=== PATIENT | female | born 1990 | race Caucasian/White ===

== ENCOUNTER 2021-08-26 07:54 | Inpatient (IN) ==
[2021-08-26] MEDS ORDERED: OXYTOCIN 30 UNITS/500 ML BAG IV PRN (08:36)
[2021-08-26] MEDS ORDERED: miSOPROStoL 50 MCG TAB PO ONE ×3 (08:36→21:38)
[2021-08-26 09:18] LABS: Hematocrit (blood only) 33.5 % (37-47); Hemoglobin 10.6 g/dL (12.0-16.0); Mean Corpuscular Hemoglobin 21.5 pg (25-34); Mean Corpuscular Hgb Conc 31.6 g/dL (32-36); Mean Corpuscular Volume 67.8 fL (80-100); Platelet Count 211 K/uL (130-400); RDW Coefficient of Variation 17.4 % (11.5-14.5); RDW Standard Deviation 42.1 fL (36.4-46.3); Red Blood Count 4.94 M/uL (4.2-5.4); White Blood Count 7.65 K/uL (4.8-10.8)
[2021-08-27] MEDS ORDERED: miSOPROStoL 50 MCG TAB PO ONE (01:56)
[2021-08-27] MEDS ORDERED: BUTORPHANOL TARTRATE 1 MG/ML VIAL IV PRN (06:09)
[2021-08-27] MEDS ORDERED: BUTORPHANOL TARTRATE 1 MG/ML VIAL ONE (06:16)
[2021-08-27] MEDS: LACTATED RINGER'S 1,000 ML IV PRN ×2 (07:52→08:52)
[2021-08-27] MEDS ORDERED: ePHEDrine sulfate 50 MG/ML AMP ONE (07:57)
[2021-08-27] MEDS ORDERED: fentaNYL citrate 100 MCG/2 ML VIAL ONE (07:58)
[2021-08-27] MEDS ORDERED: BUPIVACAINE 0.25% 30 ML VIAL ONE (07:58)
[2021-08-27] MEDS ORDERED: SODIUM CHLORIDE 0.9% INJ 10 ML VIAL ONE (07:58)
[2021-08-27] MEDS ORDERED: LIDOCAINE 2%/EPINEPHRINE 1:200,000 20 ML SDV ONE (07:58)
[2021-08-27] MEDS ORDERED: fentaNYL 2MCG/ML ROPIVACAINE 1.25MG/ML 100 ML BAG EPI ONE (07:59)
[2021-08-27] MEDS ORDERED: NALBUPHINE HCL INJ 10 MG/ML AMP IV PRN (08:16)
[2021-08-27] MEDS ORDERED: NALOXONE HCL 0.4 MG/1 ML VIAL/CARP IV PRN (08:16)
[2021-08-27] MEDS ORDERED: NALOXONE HCL 1 MG in SODIUM CHLORIDE 0.9% 1000ML 1,000 ML IV PRN (08:16)
[2021-08-27] MEDS ORDERED: diphenhydrAMINE 50 MG/ML VIAL IV PRN (08:16)
[2021-08-27] MEDS ORDERED: ONDANSETRON INJ 2 MG/ML 2 ML VIAL IV PRN ×2 (08:16→16:59)
[2021-08-27] MEDS ORDERED: ePHEDrine sulfate 50 MG/ML AMP IV PRN (08:16)
[2021-08-27] MEDS ORDERED: fentaNYL 2MCG/ML ROPIVACAINE 1.25MG/ML 100 ML BAG EPI PRN (08:16)
--- NOTE | 2021-08-27 08:52 | Anesthesiology Consultation ---
Date of Service August 27, 2021 Assessment & Plan ASA ASA2 Proposed Anesthesia Anesthesia Type: Labor Epidural Risk / Benefits Reviewed With: PT / POA / Parent / Guardian, Accepts Plan and Informed Consent Obtained History Height/Weight Height: 5 ft 9 in Weight: 73.936 kg Allergies Allergy/AdvReac Type Severity Reaction Status Date / Time No Known Allergies Allergy Verified 08/26/21 08:49 Medications Home Medications Medication Instructions Recorded Confirmed Last Taken prenat.vits,elham,luh-rxbc-mpujx 1 tab PO QAM 01/27/21 08/26/21 08/25/21 08:00 quetiapine 25 mg tablet (Seroquel) 6 mg PO HS 02/28/21 08/26/21 08/24/21 Active Medications Generic Name Dose Route Start Last Admin Trade Name Freq PRN Reason Stop Dose Admin Butorphanol Tartrate 1 mg 08/27/21 06:09 08/27/21 07:39 Butorphanol Tartrate 1 Mg/Ml Vial IV 09/26/21 06:08 1 mg Q1H PRN Administration Pain Lactated Ringer's 1,000 mls @ 125 mls/hr 08/26/21 08:36 08/27/21 07:52 Lr IV 08/28/21 08:35 999 mls/hr .Q8H PRN Administration L&D Protocol Protocol Past Medical History Medical History (Updated 08/26/21 @ 11:53 by Antonietta Rosado RN) ADHD (attention deficit hyperactivity disorder) Anxiety and depression POTS (postural orthostatic tachycardia syndrome) Exercise / Class Metabolic Activity II 4-5 Yardwork/Stairs/Walk up hill Past Family History Family History Aunt Breast cancer Grandmother (Maternal) Breast cancer Denies family history of Ovarian cancer Prostate cancer Colorectal cancer Past Surgical History Surgical History History of tooth extraction Past Anesthesia History No Hx of Anesthesia Complications and No Family Hx of Anesthesia Complications History of PONV No Hx of PONV and No Hx of Motion Sickness Social History Smoking Status: Never smoker Do You Dip or Chew Tobacco: No Hx Alcohol Use: No Hx Substance Use: No Review of Systems denies fever/cough/ colds/ chest pain/ SOB/ KENNY denies KENNY Physical Exam Vital Signs Last Vital Signs Temp 36.8 C 08/27/21 07:10 Pulse 52 L 08/27/21 08:50 Resp 18 08/27/21 07:10 BP 108/59 L 08/27/21 08:50 Pulse Ox 98 08/27/21 08:50 ENMT Mouth: no TMJ abnormality and no dentition abnormality Thyromental Distance: > or= 3.5 Finger Breadths Mallampati Class: II Neck neck extension not limited Respiratory normal respiratory effort; no respiratory distress Auscultation: lungs clear to auscultation bilaterally Cardiovascular Rate/Rhythm: regular rate and regular rhythm Neurologic moves all extremities Psychiatric Orientation: alert and oriented x 3 Testing Laboratory Results 08/26/21 08:49
[2021-08-27] MEDS ORDERED: OXYTOCIN 30 UNITS/500 ML BAG IV PRN ×2 (09:18→14:21)
[2021-08-27] MEDS ORDERED: bisacodyL 10 MG SUPP PR PRN (14:21)
[2021-08-27] MEDS ORDERED: DIPHTHERIA/TETANUS/PERTUSSIS 0.5 ML SYR/VIAL IM ONE (14:21)
[2021-08-27] MEDS ORDERED: miSOPROStoL 200 MCG TAB PR ONE (14:21)
[2021-08-27] MEDS ORDERED: METHYLERGONOVINE MALEATE 0.2 MG/ML AMP IM ONE (14:21)
[2021-08-27] MEDS ORDERED: HYDROCORTISONE ACETATE 25 MG SUPP PR PRN (14:21)
[2021-08-27] MEDS ORDERED: ACETAMINOPHEN W/CODEINE #3 1 TAB PO PRN (14:21)
[2021-08-27] MEDS ORDERED: BENZOCAINE 20% AER SPR 82.5 GM CAN EXT PRN (14:21)
[2021-08-27] MEDS ORDERED: oxyCODONE/ACETAMINOPHEN 5mg/325mg TAB PO PRN (14:21)
--- NOTE | 2021-08-27 15:56 | Anesthesiology Progress Note ---
Date of Service August 27, 2021 Anesthesia Post Procedure Vital Signs Vital Signs: Temp Pulse Pulse Resp BP Pulse Ox 08/27/21 15:45 18 08/27/21 15:43 56 L 128/66 08/27/21 15:29 61 138/64 08/27/21 15:15 36.5 C 16 08/27/21 15:13 69 135/70 08/27/21 15:11 66 123/57 L 08/27/21 15:09 65 141/65 H 08/27/21 15:05 63 128/67 08/27/21 15:03 62 140/67 08/27/21 15:01 60 132/69 08/27/21 15:00 16 08/27/21 14:59 67 131/61 08/27/21 14:57 62 129/61 08/27/21 14:55 65 132/58 L 08/27/21 14:53 64 124/60 08/27/21 14:51 67 133/60 08/27/21 14:47 61 121/59 L 08/27/21 14:45 62 18 136/57 L 08/27/21 14:43 65 126/59 L 08/27/21 14:41 60 140/63 08/27/21 14:39 70 130/64 08/27/21 14:35 69 125/59 L 08/27/21 14:33 70 136/63 08/27/21 14:31 72 153/63 H 08/27/21 14:30 16 08/27/21 14:29 89 135/91 08/27/21 14:26 78 143/62 H 08/27/21 14:23 81 119/66 08/27/21 14:21 68 126/74 08/27/21 14:20 36.9 C 18 08/27/21 14:19 63 120/65 08/27/21 14:17 68 119/73 08/27/21 14:14 67 124/69 08/27/21 14:12 75 125/71 08/27/21 14:11 77 126/70 08/27/21 14:09 91 H 122/76 08/27/21 14:05 86 98 08/27/21 14:00 93 H 98 08/27/21 13:55 94 H 99 08/27/21 13:50 75 97 08/27/21 13:45 97 H 99 08/27/21 13:40 108 H 99 08/27/21 13:39 77 118/71 08/27/21 13:35 69 96 08/27/21 13:30 81 99 08/27/21 13:25 93 H 92 08/27/21 13:20 72 98 08/27/21 13:15 62 98 08/27/21 13:10 60 98 08/27/21 13:09 55 L 103/59 L 08/27/21 13:05 54 L 97 08/27/21 13:00 54 L 98 08/27/21 12:55 67 96 08/27/21 12:50 56 L 97 08/27/21 12:45 55 L 98 08/27/21 12:40 55 L 98 08/27/21 12:39 53 L 118/68 08/27/21 12:35 61 99 08/27/21 12:30 52 L 16 97 08/27/21 12:25 52 L 96 08/27/21 12:20 55 L 97 08/27/21 12:15 55 L 96 08/27/21 12:10 58 L 98 08/27/21 12:09 53 L 109/67 08/27/21 12:05 66 99 08/27/21 12:00 61 18 98 08/27/21 11:59 36.9 C 08/27/21 11:55 59 L 99 08/27/21 11:54 55 L 112/67 08/27/21 11:50 57 L 97 08/27/21 11:45 53 L 98 08/27/21 11:40 55 L 134/60 97 08/27/21 11:35 67 98 08/27/21 11:30 66 18 97 08/27/21 11:25 64 98 08/27/21 11:24 64 120/69 08/27/21 11:20 61 97 08/27/21 11:15 60 95 08/27/21 11:10 56 L 127/75 97 08/27/21 11:05 63 96 08/27/21 11:00 56 L 18 97 08/27/21 10:55 59 L 97 08/27/21 10:54 60 108/68 08/27/21 10:50 57 L 96 08/27/21 10:45 59 L 18 96 08/27/21 10:40 61 97 08/27/21 10:39 55 L 113/68 08/27/21 10:35 59 L 96 08/27/21 10:30 59 L 16 98 08/27/21 10:25 57 L 120/81 98 08/27/21 10:20 69 99 08/27/21 10:16 16 08/27/21 10:15 54 L 97 08/27/21 10:10 59 L 98 08/27/21 10:09 56 L 109/67 08/27/21 10:05 53 L 18 98 08/27/21 10:01 16 08/27/21 10:00 51 L 98 08/27/21 09:55 55 L 97 08/27/21 09:54 47 L 113/62 08/27/21 09:50 53 L 16 98 08/27/21 09:45 59 L 99 08/27/21 09:41 16 08/27/21 09:40 64 98 08/27/21 09:38 54 L 110/61 08/27/21 09:35 64 98 08/27/21 09:34 51 L 107/61 08/27/21 09:30 50 L 16 98 08/27/21 09:28 58 L 107/62 08/27/21 09:25 55 L 116/61 97 08/27/21 09:20 51 L 16 96 08/27/21 09:18 57 L 114/62 08/27/21 09:17 16 08/27/21 09:15 57 L 99 08/27/21 09:14 50 L 113/57 L 08/27/21 09:10 56 L 97 08/27/21 09:09 51 L 115/55 L 08/27/21 09:05 57 L 16 98 08/27/21 09:04 50 L 112/55 L 08/27/21 09:00 58 L 97 08/27/21 08:59 16 08/27/21 08:56 54 L 16 113/56 L 08/27/21 08:55 54 L 96 08/27/21 08:54 54 L 112/56 L 08/27/21 08:53 18 08/27/21 08:52 51 L 106/57 L 08/27/21 08:50 52 L 108/59 L 98 08/27/21 08:49 18 08/27/21 08:48 56 L 113/61 08/27/21 08:46 50 L 114/63 08/27/21 08:45 53 L 18 96 08/27/21 08:44 53 L 112/59 L 08/27/21 08:43 58 L 117/55 L 08/27/21 08:41 54 L 125/90 08/27/21 08:40 59 L 98 08/27/21 08:38 65 123/80 08/27/21 08:37 59 L 135/75 08/27/21 08:35 53 L 97 08/27/21 08:34 76 112/60 08/27/21 08:32 57 L 123/86 08/27/21 08:30 67 100 08/27/21 08:25 67 98 08/27/21 08:22 55 L 90 08/27/21 08:20 67 94 08/27/21 08:15 54 L 95 08/27/21 08:10 57 L 95 08/27/21 08:05 66 99 08/27/21 08:03 56 L 90 08/27/21 08:00 58 L 95 08/27/21 07:55 58 L 98 08/27/21 07:50 75 97 08/27/21 07:43 68 98 08/27/21 07:38 72 99 08/27/21 07:33 46 L 95 08/27/21 07:28 48 L 97 08/27/21 07:23 45 L 95 08/27/21 07:18 53 L 125/73 97 08/27/21 07:13 47 L 96 08/27/21 07:10 36.8 C 18 08/27/21 07:08 65 97 08/27/21 07:03 51 L 97 08/27/21 06:58 50 L 97 08/27/21 06:53 54 L 97 08/27/21 06:48 49 L 95 08/27/21 06:43 53 L 95 08/27/21 06:38 62 93 08/27/21 06:33 58 L 97 08/27/21 06:28 62 94 08/27/21 06:19 12 96 08/27/21 03:30 36.7 C 47 L 14 08/27/21 03:26 36.7 C 47 L 14 110/56 L 07/05/22 23:00 36.9 C 52 L 52 L 15 08/26/21 22:59 52 L 111/57 L 08/26/21 19:11 36.9 C 52 L 16 08/26/21 19:02 52 L 120/67 08/26/21 18:58 36.5 C 52 L 16 120/67 Pain Intensity Lower Back: Pain Intensity: 0 Transfer of Care Handoff Completed per policy Notes Mental Status: alert / awake / arousable and participated in evaluation Patient Amnestic to Procedure: Yes Nausea / Vomiting: adequately controlled Pain: adequately controlled Airway Patency, RR, SpO2: stable & adequate BP & HR: stable & adequate Hydration State: stable & adequate Anesthetic Complications: no major complications apparent and Pt Satisfied with anesthetic care
[2021-08-27] MEDS ORDERED: ONDANSETRON INJ 2 MG/ML 2 ML VIAL ONE (17:04)
--- NOTE | 2021-08-27 19:16 | Delivery Summary ---
DELIVERY NOTE: DATE OF DELIVERY: 08/27/2021 The patient is a 1, para 1, she had IVF . Due to IVF status she was induced at 39+ w eeks' gestation, was brought in. Head was nice and low. Cervix was closed. We gave her about four doses of Cytotec throughout the night and the next morning when I came in, the cervix was paper thin. She was about 1.5 cm. She received 2 doses of IV Stadol and then epidural. After the epidural was started, we augmented the contractions with IV Pitocin. The first time I checked her after about 4 hours of IV Pitocin augmentation, she was fully dilated, the head was like a +1. We then had her pus h several times. She pushed out a live male via direct occiput anterior position over an inta ct perineum. There was a nuchal cord x1, which was reduced over the head. Then, the infant was suct ioned through the mouth and the nose. Shoulders were delivered without difficulty. Cord was allowed to pulse for 1 minute and clamped and cut. Cord blood was taken. With IV Pitocin running, the plac enta was removed intact. We also gave her IM Methergine. Inspection of the perineum revealed a seco nd-degree laceration of the perineum. This was repaired anatomically, vaginal mucosa was approximated with a running 2-0 Vicryl out and to beyond the hymenal ring. There was a very small tear in the re ctal sphincter capsule and this was repaired with two interrupted sutures of Vicryl. We then did a d eep suture to approximate the bulbocavernosus muscle. A separate suture to approximate the perineal body and then another suture to approximate the suture between the perineal body suture and the bulbo cavernosus muscle. This approximated the deep sutures well. Then a running subcuticular suture to a pproximate the perineal skin edges. Following this, vaginal exam including rectovaginal examination revealed no hematoma formation or sponges in the vagina, 800 mcg of Cytotec was placed rectally. ESTIMATED BLOOD LOSS: 200 mL. The patient tolerated the procedure well and left the OR in good condition. Apgars were deferred to the nurses. Job ID: [id number]
[2021-08-27] MEDS: DOCUSATE SODIUM 100 MG CAP PO SCH (20:36)
[2021-08-27] MEDS: IBUPROFEN 600 MG TAB PO PRN (20:36)
[2021-08-27] MEDS ORDERED: QUEtiapine FUMARATE 25 MG TABLET PO SCH (22:30)
[2021-08-27] MEDS: QUEtiapine FUMARATE 25 MG TABLET PO SCH (22:36)
[2021-08-28] MEDS: IBUPROFEN 600 MG TAB PO PRN ×4 (03:33→16:57)
[2021-08-28 06:10] LABS: Hematocrit (blood only) 33.2 % (34.1-44.9); Hemoglobin 10.3 g/dl (12.0-16.0); Mean Corpuscular Hemoglobin 21.1 pg (25.0-34.0); Mean Corpuscular Volume 68.2 fL (80.0-100.0); RDW Coefficient of Variation 18.4 % (11.5-14.5); RDW Standard Deviation 42.3 fL (36.4-46.3); Red Blood Count 4.87 M/uL (3.93-5.22); White Blood Count 12.14 K/ul (4.8-10.8)
[2021-08-28] MEDS: ACETAMINOPHEN 325 MG TAB PO PRN ×2 (06:12→20:18)
[2021-08-28 07:01] LABS: Platelet Count 204 K/uL (130-400)
--- NOTE | 2021-08-28 08:44 | Obstetrical Progress Note ---
Date of Service August 28, 2021 Assessment & Plan Admission and Anticipated Discharge Date Admission Date: August 26, 2021 Subjective abdomen soft and non tender no calf tenderness ambulating well vaginal bleeding scant hgb 10.3 Results & Data ([facility]) Vital Signs (Past 12 Hours) Vital Signs Temp Pulse Pulse Resp BP BP Pulse Ox 08/28/21 07:30 36.4 C L 58 L 18 104/70 97 08/28/21 03:36 36.8 C 65 18 96/60 L 08/28/21 00:00 36.7 C 58 L 18 105/65
[2021-08-28] MEDS: DOCUSATE SODIUM 100 MG CAP PO SCH ×2 (09:10→20:18)
[2021-08-28] MEDS: PRENATAL VITAMIN 1 TAB PO SCH (09:11)
[2021-08-28] MEDS ORDERED: bisacodyL 5 MG TABEC PO SCH (20:00)
[2021-08-28] MEDS: QUEtiapine FUMARATE 25 MG TABLET PO SCH (22:01)
[2021-08-29] MEDS: IBUPROFEN 600 MG TAB PO PRN ×2 (06:11→10:33)
[2021-08-29 07:36] LABS: Hematocrit (blood only) 27.8 % (34.1-44.9); Hemoglobin 8.5 g/dl (12.0-16.0)
[2021-08-29] MEDS: PRENATAL VITAMIN 1 TAB PO SCH (08:06)
[2021-08-29] MEDS: DOCUSATE SODIUM 100 MG CAP PO SCH (08:06)
--- NOTE | 2021-08-29 08:25 | Obstetrical Progress Note ---
Date of Service August 29, 2021 Assessment & Plan Admission and Anticipated Discharge Date Admission Date: August 26, 2021 Subjective abdomen soft and non tender no calf tenderness ambulating well vaginal bleeding scant hgb 8.5 Results & Data ([facility]) Vital Signs (Past 12 Hours) Vital Signs Temp Pulse Resp BP Pulse Ox 08/28/21 22:55 36.7 C 57 L 16 101/61 97
== END 2021-08-29 11:23 | disposition home or self-care (01) | DRG 768 ==
LOC: 4S1 07:54 → 4E2 08-27 17:32

== ENCOUNTER 2023-12-01 09:27 | Inpatient (IN) ==
--- NOTE | 2023-12-01 09:53 | Emergency Department Note ---
Impression & Plan Severe malnutrition, Eating disorder ED Provider Note CHIEF COMPLAINT: NG tube placement HISTORY OF PRESENTING ILLNESS: This 33-year-old female patient presents to the emergency department for evaluation of a possible NG tube placement. The patient states that she saw her doctor yesterday at [facility] and her orthostatic vital signs were positive and there was concern for malnutrition per patient. The patient states that she was advised to come to the hospital to get an NG tube placed. However, the patient states that she could not come in yesterday for "medical stabilization" and presented today. The patient states that she talked to her financial sales consultant today and they recommended her to come to the ER. The patient states that her PCP feels comfortable managing her NG tube feedings. The patient states that she had one before and knows how to manage it at home. The patient states that she had outpatient blood work done yesterday. The patient states that it is very hard for her to eat due to her eating disorder. 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 She states that she is just not able to get enough nutrition orally. She states that she will frequently get dizzy, lightheadedness, and sometimes "black out" when she stands up or walks around. She denies any chest pain, but will get heart palpitations and heart racing with changes in position. Sometimes feels SOB with position changes as well because of being so malnourished. I reviewed the patient's PCP visit from 11/29/2023 that confirmed her history of anorexia nervosa, binge eating/purging type. Per the PCPs note, the patient is consistently consuming less than 1000 elham a day and has high levels of food guilt. She also has constant thoughts of abusing laxatives. The patient has lost 1.4 kg from the time of her last appointment per the note. Per the notes she has also been having dizziness, heart palpitations, fatigue, positional orthostasis, and tachycardia mixed with bradycardia. The patient's PCP did advise her to go to the ER for medical hospitalization and possible repeat NG/NJ tube placement. REVIEW OF SYSTEMS: See HPI for pertinent positives and pertinent negatives. ALLERGIES: Sesame oil MEDICATIONS: See below PAST MEDICAL HISTORY: See below PHYSICAL EXAM: VITALS: Vitals are noted on the nurse's note and reviewed by myself. GENERAL: The patient appears thin and slightly malnourished. However, she is non toxic, no acute distress, non-diaphoretic. SKIN: Capillary refill <2 sec. EYES: PERRLA. EOMI. Conjunctivae without injection, sclerae without icterus. NOSE: Patent without discharge. MOUTH: Mucous membranes moist. Uvula midline. Airway patent. NECK: Supple without nuchal rigidity. HEART: Regular rate and rhythm without murmurs gallops or rubs. LUNGS: Clear to auscultation bilaterally without wheezes, rales or rhonchi. No retractions or accessory muscle use. ABDOMEN: Positive bowel sounds x 4. Normal tympanic percussion. Soft, nontender. No masses or organomegaly. Zuluaga sign negative. No guarding or rebound tenderness. No focal RLQ or LLQ tenderness. MUSCULOSKELETAL: No gross musculoskeletal defects. NEURO: Patient was alert and oriented. No focal neurological deficits. DIFFERENTIAL DIAGNOSIS: Differential diagnosis includes bowel nourishment, dehydration, electrolyte abnormality, cardiac abnormality, pulmonary etiology, eating disorder, or others. ED COURSE AND MEDICAL DECISION MAKING: MEDICATIONS GIVEN: There is currently a severe shortage of IV fluids. The patient's condition was assessed and did not meet hospital criteria for IV fluid administration at this time. Therefore, IV fluids were not given. MONITOR: Continuous cardiac sonographer: Order was placed for continuous cardiac sonographer. Patient was placed on the cardiac sonographer and continuous pulse ox. Patient was noted to be in sinus bradycardia at an initial rate of 50 bpm per my interpretation. EKG: EKG was interpreted by myself as sinus bradycardia at 47 bpm with no acute ST or T wave changes and no significant change from her previous EKGs. INTERPRETATION OF LABS: I interpreted the labs with full lab results as below in the lab section of this note. Pertinent lab results discussed in the MDM section below. EXTERNAL RECORDS REVIEWED: I reviewed the patient's PCP office visit note from 11/29/2023 as above. CONSULTATIONS: On-call hospitalist MDM SUMMARY: I examined the patient. The patient was referred to the ER for admission due to her symptomatic malnutrition secondary to her anorexia nervosa. An IV lock was placed and labs were drawn. There is currently a severe shortage of IV fluids. The patient's condition was assessed and did not meet hospital criteria for IV fluid administration at this time. Therefore, IV fluids were not given. White blood cell count low at 3.37. Hemoglobin normal at 13.3. Platelet count normal at 252. Coags were normal. Prealbumin low at 18.1, but CMP was normal. Magnesium and phosphorus were normal. High-sensitivity troponin normal. TSH normal. Lipase normal. Vitamin B12 normal at 688. Vitamin D normal at 30.8. Serum hCG negative. Urinalysis was normal. The patient's workup in the ER was reassuring, but the patient has failed oral nutrition as an outpatient per her PCP and financial sales consultant. I spoke with the on-call hospitalist who agreed to admit the patient for further evaluation and treatment. Please refer to their dictation for further details. The patient's care was transferred in stable condition. DIAGNOSIS: Severe malnutrition Eating disorder Past Med/Surg History Problem List (Updated 12/01/23 @ 18:41 by Jen Adhikari PA-C) Severe malnutrition (Acute) Difficulty urinating Urinary retention Eating disorder (Acute) POTS (postural orthostatic tachycardia syndrome) Postural lightheadedness (Acute) Medical History ADHD (attention deficit hyperactivity disorder) Anxiety and depression Eating disorder affecting , antepartum Encounter for anatomic survey POTS (postural orthostatic tachycardia syndrome) resulting from in vitro fertilization, antepartum Supervision of normal intrauterine in primigravida Surgical History History of tooth extraction Family History Aunt Breast cancer Grandmother (Maternal) Breast cancer Denies family history of Ovarian cancer Prostate cancer Colorectal cancer Social History Smoking Status: Never smoker Second Hand Exposure: No; Do You Dip or Chew Tobacco: No; Hx Alcohol Use: No Hx Substance Use: No Preferred Language: Bangladeshi Communication Ability: Effective Palliative Care Nurse Practitioner Required: No Beliefs That Will Affect Care: None marital status: Current Living Situation: Family Current Living Situation Comment: Patient lives with son, current occupational status: employed current occupation: PHD student at [employer] Feels Safe at Home: Yes Safety Concerns: Feels Safe At This Time Assistive Devices: Contacts Allergies Allergies Allergy/AdvReac Type Severity Reaction Status Date / Time sesame oil Allergy Severe Swelling Verified 08/18/23 07:23 of Lip/Tongue/Throat Home Meds Home Medications Medication Instructions Recorded Confirmed dextroamphetamine-amphetamine 5 mg 5 mg PO QAM PRN Other 11/03/22 12/01/23 tablet lorazepam 0.5 mg tablet 0.5 mg PO BID 11/03/22 12/01/23 multivitamin 1 tab PO QAM 11/03/22 12/01/23 sertraline 50 mg tablet 100 mg PO UD 11/03/22 12/01/23 trazodone 50 mg tablet 25 - 50 mg PO HS 12/01/23 12/01/23 Previous Rx's Medication Instructions Recorded etonogestrel 0.12 mg-ethinyl 1 vag ring vaginal .COMPLEX #3 ea 08/18/23 estradiol 0.015 mg/24 hr vaginal ring (NuvaRing) Results & Data (ED) Vital Signs Vital Signs - 24 hr 12/01/23 09:33 12/01/23 09:42 12/01/23 09:51 Temperature 36.3 C L Temperature Source Temporal Artery Scan Pulse Rate - Sitting 62 Pulse Rate - Standing 58 L Pulse Rate 68 53 L Respiratory Rate 16 Respiratory Effort / Characteristics Non-Labored Spontaneous Respiratory Depth Normal Blood Pressure - Sitting 117/61 Blood Pressure- Standing 113/69 Blood Pressure 104/73 Blood Pressure Mean 83 Pulse Oximetry 94 Oxygen Delivery Method Room Air Sepsis Recent Fever Within 48 Hours No Sepsis New/Unexplained Change in Mental Status No Sepsis Action Taken by Nursing No Action Required Laboratory Data 12/01/23 10:20 12/01/23 17:53 Lab Results 12/01/23 12/01/23 Range/Units 10:20 10:25 WBC 3.37 L (4.8-10.8) K/ul RBC 5.30 (4.20-5.40) M/uL Hgb 13.3 (12.0-16.0) g/dl Hct 42.0 (37.0-47.0) % MCV 79.2 L (80.0-100.0) fL MCH 25.1 (25.0-34.0) pg MCHC 31.7 L (32.0-36.0) g/dL RDW Std Deviation 43.0 (36.4-46.3) fL RDW Coeff of Lizeth 14.9 H (11.5-14.5) % Plt Count 252 (130-400) K/uL MPV 10.8 (9.4-12.4) fL Immature Gran % (Auto) 0.3 % Neut % (Auto) 44.1 % Lymph % (Auto) 40.1 % [place] % (Auto) 10.4 % Eos % (Auto) 3.9 % Baso % (Auto) 1.2 % Neut # (Auto) 1.49 (1.40-6.50) K/uL Lymph # (Auto) 1.35 (1.20-3.40) K/uL [place] # (Auto) 0.35 (0.11-0.59) K/uL Eos # (Auto) 0.13 (0.00-0.50) K/uL Baso # (Auto) 0.04 (0.00-0.20) K/uL Immature Gran # (Auto) 0.01 (0.01-0.20) K/uL PT 10.9 (9.0-12.0) Seconds INR 1.0 (0.9-1.1) APTT 26 (21-31) Seconds PTT Ratio 1.0 Sodium 140 (136-145) mmol/L Potassium 3.8 (3.5-5.1) mmol/L Chloride 107 (98-107) mmol/L Carbon Dioxide 28 (21-32) mmol/L Anion Gap 5 (3-11) BUN 12 (6-23) mg/dl Creatinine 0.71 (0.6-1.2) mg/dl Est Cr Clr Drug Dosing 107.5 ml/min eGFR 116.51 BUN/Creatinine Ratio 16.9 (10-20) Glucose 87 (70-99(Fasting)) mg/dl Calcium 9.7 (8.6-10.3) mg/dl Phosphorus 2.9 (2.5-4.9) mg/dl Magnesium 2.2 (1.7-2.4) mg/dl Total Bilirubin 0.6 (0.2-1.0) mg/dl AST 14 (13-39) U/L ALT 9 (7-52) U/L Alkaline Phosphatase 62 (34-104) U/L Troponin I High Sens < 2.3 (0-14) pg/ml Total Protein 7.6 (6.0-8.3) gm/dl Albumin 4.8 (3.4-5.0) gm/dl Globulin 2.8 (2.5-4.0) gm/dl Albumin/Globulin Ratio 1.7 (0.9-2) Prealbumin 18.1 L (20-40) mg/dl Lipase 35 (11-82) U/L Vitamin B12 688 (180-914) pg/ml 25-OH Vitamin D Total 30.8 (30-100) ng/ml TSH 1.906 (0.300-4.500) uIu/ml HCG, Qual Negative (Negative) Urine Color Yellow Urine Appearance Clear (Clear) Urine pH 8.0 H (4.5-7.5) Ur Specific [place] 1.012 (1.000-1.030) Urine Protein Negative (Negative) Urine Glucose (UA) Negative (Negative) Urine Ketones Negative (Negative) Urine Blood Negative (Negative) Urine Nitrite Negative (Negative) Urine Bilirubin Negative (Negative) Urine Urobilinogen Negative (Negative) Ur Leukocyte Esterase Negative (Negative) Administered Medications Enoxaparin Sodium (Enoxaparin Inj 40 Mg/0.4 Ml Syr) 40 mg SQ Q24H CLAUDE Stop: 12/31/23 15:59 Last Admin: 12/01/23 16:47 Dose: Not Given Documented By: ERICKA Discontinued Medications Benzocaine/Butamben/Tetracaine HCl (Benzocaine/Tetracain/Butam 50 Appln/5 Gm Can) 1 appln EXT ONCE ONE Stop: 12/01/23 13:19 Last Admin: 12/01/23 15:51 Dose: Not Given Documented By: ERICKA Benzocaine/Butamben/Tetracaine HCl (Benzocaine/Tetracain/Butam 50 Appln/5 Gm Can) Confirm Administered Dose 50 appln EXT .STK-MED ONE Stop: 12/01/23 13:30 Last Admin: 12/01/23 13:36 Dose: 50 appln Documented By: STEVEN Lidocaine HCl (Lidocaine Viscous 2% 15 Ml Udc) 3 ml TOP NOW ONE Stop: 12/01/23 13:19 Last Admin: 12/01/23 13:36 Dose: 3 ml Documented By: STEVEN Lorazepam (Lorazepam 2 Mg/1 Ml Vial) 0.25 mg IV NOW STA Stop: 12/01/23 13:20 Last Admin: 12/01/23 13:36 Dose: 0.25 mg Documented By: ARS Discharge Plan Visit Data Chief Complaint: Referred by Doctor Stated Complaint: NG TUBE PLACEMENT ED Provider: [facility] Midlevel Provider: Jen Adhikari Discharge Problem: Severe malnutrition, Eating disorder Patient Disposition: Admitted As Inpatient Condition: Good Discharge Instructions Interventions: ED Discharge Assessment Last Done: 12/01/23 16:12
[2023-12-01 10:45] LABS: Basophils # (auto) 0.04 K/uL (0.00-0.20); Basophils % (auto) 1.2 %; Eosinophils # (auto) 0.13 K/uL (0.00-0.50); Eosinophils % (auto) 3.9 %; Hemoglobin 13.3 g/dl (12.0-16.0); Immature Granulocytes # (auto) 0.01 K/uL (0.01-0.20); Immature Granulocytes % (auto) 0.3 %; Lymphocytes # (auto) 1.35 K/uL (1.20-3.40); Lymphocytes % (auto) 40.1 %; Mean Corpuscular Hemoglobin 25.1 pg (25.0-34.0); Mean Corpuscular Hgb Conc 31.7 g/dL (32.0-36.0); Mean Corpuscular Volume 79.2 fL (80.0-100.0); Mean Platelet Volume 10.8 fL (9.4-12.4); Monocytes # (auto) 0.35 K/uL (0.11-0.59); Monocytes % (auto) 10.4 %; Neutrophils # (auto) 1.49 K/uL (1.40-6.50); Neutrophils % (auto) 44.1 %; Platelet Count 252 K/uL (130-400); RDW Coefficient of Variation 14.9 % (11.5-14.5); White Blood Count 3.37 K/ul (4.8-10.8)
[2023-12-01 10:48] LABS: Appearance Urine Clear (Clear); Bilirubin Urine Negative (Negative); Blood Urine Negative (Negative); Color Urine Yellow; Glucose Urine UA Negative (Negative); Ketones Urine Negative (Negative); Leukocyte Esterase Urine Negative (Negative); Nitrite Urine Negative (Negative); Protein Urine Negative (Negative); Specific Gravity Urine 1.012 (1.000-1.030); Urobilinogen Urine Negative (Negative)
[2023-12-01 10:57] LABS: Pregnancy Test, Serum Negative (Negative)
[2023-12-01 11:02] LABS: Alanine Aminotransferase 9 U/L (7-52); Albumin Globulin Ratio 1.7 (0.9-2); Albumin Level 4.8 gm/dl (3.4-5.0); Alkaline Phosphatase 62 U/L (34-104); Anion Gap 5 (3-11); Aspartate Aminotransferase 14 U/L (13-39); BUN Creatinine Ratio 16.9 (10-20); Bilirubin,Total 0.6 mg/dl (0.2-1.0); Blood Urea Nitrogen 12 mg/dl (6-23); Calcium 9.7 mg/dl (8.6-10.3); Carbon Dioxide 28 mmol/L (21-32); Chloride 107 mmol/L (98-107); Creatinine Clr Calc Pharmacy 107.5 ml/min; Globulin 2.8 gm/dl (2.5-4.0); Glucose 87 mg/dl (70-99(Fasting)); Lipase 35 U/L (11-82); Magnesium 2.2 mg/dl (1.7-2.4); Phosphorus 2.9 mg/dl (2.5-4.9); Potassium 3.8 mmol/L (3.5-5.1); Sodium 140 mmol/L (136-145); Total Protein 7.6 gm/dl (6.0-8.3)
[2023-12-01 11:07] LABS: Troponin I High Sensitivity < 2.3 pg/ml (0-14)
[2023-12-01 11:17] LABS: Thyroid Stimulating Hormone 1.906 uIu/ml (0.300-4.500)
[2023-12-01 11:19] LABS: Partial Thromboplastin Time 26 Seconds (21-31); Prothrombin Time 10.9 Seconds (9.0-12.0)
--- NOTE | 2023-12-01 12:24 | History & Physical Report ---
Date of Service December 01, 2023 Assessment & Plan (1) Severe malnutrition: Plan: Severe protein calorie malnutrition, orthostasis Volume contracted on admission, calorie intake less than 1000 elham/day and with decreased intake. Recommended for NGT by dietitian/PCP Patient caloric intake ranges from 400 kcals per day to 1500 kcals per day, she admits that when she gets over thousand she will frequently restrict down to extreme levels due to anxiety around this. Of history of some anxiety and stress but notes that this does not seem to have changed her appetite more just limits her time to try and eat. Denies SI/HI currently. Feels safe reaching out to provider if these were to worsen and declines psych consultation on admission Patient has done well with temporary NGT's in the past which may remain in place up to 6 weeks Core safe ordered Dietitian consulted Patient does not have critical hypophosphatemia or electrolyte abnormalities. Thiamine IV x 1 given prior to initiation of tube feeds. High risk of refeeding syndrome. Continue electrolytes checks every 6 hours on admission Last EGD 10/2022: Hill grade 1 GE flap valve Will consult GI if bedside placement of NG is unsuccessful Hemoglobin normal, platelet count normal, potassium normal Once NGT was placed and patient is tolerating nighttime continuous feeds with stable electrolytes, should be able to be discharged with follow-up electrolyte checks to her PCP. Regular diet for feeding as tolerated has been continued however due to risk of refeeding syndrome would limit additional p.o. to no more than 4 Neocate calories on top of her tube feeds once initiated (2) Eating disorder: (3) POTS (postural orthostatic tachycardia syndrome): Plan: POTS Worsened symptoms with presyncopal episodes due to volume contraction and nutritional insufficiency treated as above No chest pain or chest pressure, EKG sinus bradycardia with appropriate chronotropic response at the bedside. No ischemic changes Troponin is normal Repeat orthostatics once nutritional status is improved (4) Anxiety and depression: Plan: bipolar type II SSRI continued (5) ADHD (attention deficit hyperactivity disorder): Plan: Adderall held due to worsening caloric restriction/diminished appetite Plan DVT prophylaxis: Lovenox CODE STATUS: Full code Disposition: Medical/Tele due to palpitations, history of SVT Diet: Tube feeds. May supplement orals as tolerated. History of Present Illness Primary Care Provider: Zenia Rose PA-C Maura is a 33-year-old female with a history of POTS, eating disorder, severe malnutrition, current BMI 19.3 who was referred from [facility] for worsened orthostatic vital signs and concerns for acute on chronic malnutrition requiring medical stabilization. Dietitian recommended she come to the ER for NG to help with tube feedings which patient has had before and reports that she feels comfortable managing at home. Due to orthostatic symptoms with presyncope/syncope she was not felt to be stable for outpatient management at this time is recommended for inpatient initiation of tube feeds and monitoring. Patient previously followed with [facility], has switched to a [facility] provider and will be admitted to [facility]. Maura is seen at the bedside. She repots she saw her [facility] PCP Wednesday and was very orthostatic, had been frequentlylightheaded with presyncopal events. Was recommended for admission on Wednesday but patient did not feel she needed this yet and had complications. Met with her associate marketing manager yesterday and was recommended for admission and to follow with associate marketing manager Lanie here for initiation of feeds. PCP Dr. Astudillo reportedly is comfortable with monitoring daily/weekly labs if needed once PCP. Pt reports her son has bad seperation anxiety and worries about be away/admitted. She has a friend that could take care of him temporarily. She reports intake has been decreased latelty. She has been trying to increase her caloric intake weekly Was at 400kcal/day several weeks ago. Was trying to increase this an dwas up to 900kcal/day more recently, but was not able to get over 1000 more than a few days a week but then would panic about it and restrict back down to 400- 500kcal/day. No chest pain, endorses palpitations in the last week. Presyncope without full syncope. Presyncopal on standing, and feels like partially blacks out every day when standing but has not fallen and hit the ground but needed to immediately crouch and sit down to relieve symptoms. Still voiding/peeing normally No fevers, chills or sweats No abdominal pain In the past she has done well with NGT placement, but is a difficult placement which has had to have been done with GI. Has had NG for 5-6 weeks in the past as an outpatient. Usualy does nighttime feeds which are th eleast stressful for her, would occasionally run during the day if needed if she went to bed late. Has never had a PEG tube. 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 She thinks the stress impacts her eating logistically because she has l ess time to try and eat. Does not feel she needs to talk to anyone about anxiety/depression at this time, denies SI. Still takes adderall, did not take today. Medical History: Reviewed Medications: Reviewed Surgical History: Reviewed Family history: Reviewed Allergies: Reviewed Social History: Review Code Status: Full Code Allergies Allergy/AdvReac Type Severity Reaction Status Date / Time sesame oil Allergy Severe Swelling Verified 08/18/23 07:23 of Lip/Tongue/Throat Home Medications Medication Instructions Recorded Confirmed Type dextroamphetamine-amphetamine 5 mg 5 mg PO QAM PRN Other 11/03/22 12/01/23 History tablet lorazepam 0.5 mg tablet 0.5 mg PO BID 11/03/22 12/01/23 History multivitamin 1 tab PO QAM 11/03/22 12/01/23 History sertraline 50 mg tablet 100 mg PO UD 11/03/22 12/01/23 History etonogestrel 0.12 mg-ethinyl 1 vag ring vaginal .COMPLEX #3 ea 08/18/23 12/01/23 Rx estradiol 0.015 mg/24 hr vaginal ring (NuvaRing) trazodone 50 mg tablet 25 - 50 mg PO HS 12/01/23 12/01/23 History Past Med/Surg History Problem List (Updated 12/01/23 @ 18:41 by Jen Adhikari PA-C) Severe malnutrition (Acute) Difficulty urinating Urinary retention Eating disorder (Acute) POTS (postural orthostatic tachycardia syndrome) Postural lightheadedness (Acute) Medical History ADHD (attention deficit hyperactivity disorder) Anxiety and depression Eating disorder affecting , antepartum Encounter for anatomic survey POTS (postural orthostatic tachycardia syndrome) resulting from in vitro fertilization, antepartum Supervision of normal intrauterine in primigravida Surgical History History of tooth extraction Family History Aunt Breast cancer Grandmother (Maternal) Breast cancer Denies family history of Ovarian cancer Prostate cancer Colorectal cancer Social History Smoking Status: Never smoker Second Hand Exposure: No; Do You Dip or Chew Tobacco: No; Hx Alcohol Use: No Hx Substance Use: No Preferred Language: Tunisian Communication Ability: Effective Plant Scientist Required: No Beliefs That Will Affect Care: None marital status: Current Living Situation: Family Current Living Situation Comment: Patient lives with son, current occupational status: employed current occupation: PHD student at [employer] Feels Safe at Home: Yes Safety Concerns: Feels Safe At This Time Assistive Devices: Contacts Physical Exam Physical Exam: General: A&Ox3. NAD. Cooperative. Thin. HEENT: Atraumatic, normocephalic. Vision/hearing grossly intact. Pulm: CTAB A&P. -wheezes, -rales, -rhonchi. Symmetrical chest rise. No increased work of breathing. No respiratory distress. Cardiac: RRR, +soft sm. Radial pulses intact and symmetrical. Abdominal: Nontender, nondistended, soft. BS present. Results & Data Results & Data Vital Signs (Past 12 Hours) Vital Signs Temp Pulse Resp BP Pulse Ox O2 Del Method 12/01/23 09:51 53 L 12/01/23 09:33 36.3 C L 68 16 104/73 94 Room Air PG Care Time/CCT Total # of Minutes Spent Total Time Spent with Patient: Total time spent is greater than 50% in coordination of care (as documented) at patient's floor/unit and/or counseling patient: Coding Level of Care Code 82448 INT INP/OBS CARE 3/75MIN Diagnoses Severe malnutrition E43 Eating disorder F50.9 Eating disorder type: unspecified eating disorder POTS (postural orthostatic tachycardia syndrome) I49.8 Anxiety and depression F41.9; F32.A ADHD (attention deficit hyperactivity disorder) F90.9 (2) Eating disorder Eating disorder type: unspecified eating disorder Qualified Code(s): F50.9 - Eating disorder, unspecified
[2023-12-01] MEDS: LIDOCAINE VISCOUS 2% 15 ML UDC TOP ONE (13:36)
[2023-12-01] MEDS: LORazepam 2 MG/1 ML VIAL IV STA (13:36)
[2023-12-01] MEDS: BENZOCAINE/TETRACAIN/BUTAM 50 APPLN/5 GM CAN EXT ONE ×2 (13:36→15:51)
--- NOTE | 2023-12-01 14:41 | XRay Report ---
KUB CLINICAL HISTORY: Enteric tube placement. FINDINGS: An AP upright view of the lower chest and upper abdomen is compared to study dated 3. An enteric tube is in place. The tip projects below the diaphragm over the mid stomach. There is n o evidence of bowel obstruction. No intraperitoneal free air is seen below the diaphragm. There are n o abnormal abdominal calcifications. The lung bases are clear as imaged. The visualized bony structur es appear intact. IMPRESSION: An enteric tube is in place as above. Electronically signed by: Erick Riggs M.D. 12/01/2023 2:38 PM
--- NOTE | 2023-12-01 15:31 | Electrocardiogram Report ---
Test Reason : Blood Pressure : */* mmHG Vent. Rate : 47 BPM Atrial Rate : 47 BPM P-R Int : 166 ms QRS Dur : 84 ms QT Int : 422 ms P-R-T Axes : 56 51 31 degrees QTcB Int : 373 ms Sinus bradycardia Otherwise normal ECG When compared with ECG of 30-Nov-2022 23:44, No significant change was found Confirmed by Shane Hogan ([id number]) on 12/01/2023 3:30:39 PM Referred By: REFERRED SELF Confirmed By: Shane Hogan
[2023-12-01] MEDS ORDERED: LORazepam 2 MG/1 ML VIAL IV PRN (15:36)
[2023-12-01] MEDS ORDERED: ACETAMINOPHEN 325 MG TAB PO PRN (15:36)
[2023-12-01 16:32] LABS: Prealbumin 18.1 mg/dl (20-40)
[2023-12-01] MEDS: ENOXAPARIN INJ 40 MG/0.4 ML SYR SQ SCH (16:47)
--- OUTSIDE RECORDS SUMMARY | 2023-12-01 17:03 | External Medical Summary | Continuity of Care Document ---
Author Name Unknown Organization [facility] [address] Address [facility] [address] [facility] [place] [id number] Care Team Providers Care Division Roadmaster Name Role Phone Zenia Rose Primary Care Physician [phone] Encounter [facility] [id number] Date(s): 10/27/23 - 10/27/23 [facility] [address] [facility] [address], [facility] [address] [place], [place] [phone] Encounter Diagnosis Anorexia nervosa, binge eating/purging type(Final) - Discharge Disposition: Home or Self Care Attending Physician: FABRIZIO Rose Jessica A Referring Physician: FABRIZIO Rose Jessica A Allergies, Adverse Reactions, Alerts No Known Allergies Medications amphetamine-dextroamphetamine 5 mg oral tablet 1 tab, TAKE ONE TABLET BY MOUTH ONCE A DAY Start Date: 05/13/23 Status: Ordered LORazepam 0.5 mg oral tablet Start: 03/19/23 2:20:00 PM EST, 1 tab, PO, Daily, PRN: as needed for anxiety Start Date: 03/19/23 Status: Ordered Potassium Chloride (Tic-Crke-Pwz M20) 20 mEq oral tablet, extended release TAKE ONE TABLET BY MOUTH TWICE A DAY Start Date: 07/08/23 Status: Ordered propranolol 10 mg oral tablet Start: 09/17/23 11:46:00 AM EDT, 1 tab, PO, bid, Disp# 30 tab, PRN anxiety; take 30-60 minutes priorto anxiety provoking event, Pharmacy: [id number] Start Date: 09/17/23 Status: Ordered Reglan 5 mg oral tablet Start: 06/01/23 1:56:00 PM EDT, 1 tab, PO, ac and hs, Disp# 120 tab, Pharmacy: [id number] Start Date: 06/01/23 Stop Date: 07/01/23 Status: Ordered sertraline 25 mg oral tablet Start: 10/19/23 9:00:00 AM EDT, 1 tab, PO, Daily Start Date: 10/19/23 Status: Ordered sertraline 50 mg oral tablet Start: 10/19/23 9:00:00 AM EDT, 1 tab, PO, Daily Start Date: 10/19/23 Status: Ordered Problem List Condition Confirmation Course Effective Dates Status Health St atus Informant Anorexia nervosa, binge eating/purging type Confirmed Active Anticipatory anxiety Confirmed Active PTSD (post-traumatic stress disorder) Confirmed Active Results Laboratory List Name Date Comprehensive Metabolic Panel (COMP META B PANEL) 10/27/23 Magnesium Level (MAGNESIUM) 10/27/23 Phosphorus Level (PHOSPHORUS) 10/27/23 Most recent to oldest [Reference Range]: 1 eGFR CKD-EPI [>60 mL/min/1.73 m2] >90 mL /min/1.73 m2 1 (10/27/23 8:56 AM) Estimated CrCl 104.20 mL/min (10/27/23 9:35 AM) Anion Gap [5-14 mmol/L] 7 mmol/L (10/27/23 8:56 AM) Alb [3.5-5.0 g/dL] 4.6 g/dL (10/27/23 8:56 AM) Alk Phos [38-126 unit/L] 65 unit/L (10/27/23 8:56 AM) ALT [<35 unit/L] 16 unit/L (10/27/23 8:56 AM) AST [15-46 unit/L] 23 unit/L (10/27/23 8:56 AM) BUN [7-20 mg/dL] 13 mg/dL (10/27/23 8:56 AM) Ca [8.4-10.2 mg/dL] 9.7 mg/dL (10/27/23 8:56 AM) Cl- [96-107 mmol/L] 109 mmol/L *HI* (10/27/23 8:56 AM) HCO3 [22-30 mmol/L] 26 mmol/L (10/27/23 8:56 AM) Cret [0.60-1.00 mg/dL] 0.72 mg/dL (10/27/23 8:56 AM) Glu [74-106 mg/dL] 107 mg/dL *HI* (10/27/23 8:56 AM) K [3.5-5.1 mmol/L] 3.9 mmol/L (10/27/23 8:56 AM) Mg [1.6-2.3 mg/dL] 2.2 mg/dL 2 (10/27/23 8:56 AM) Na [137-145 mmol/L] 142 mmol/L (10/27/23 8:56 AM) PO4 [2.5-4.5 mg/dL] 3.5 mg/dL 3 (10/27/23 8:56 AM) T Bili [0.2-1.3 mg/dL] 0.9 mg/dL (10/27/23 8:56 AM) Prot [6.3-8.2 g/dL] 7.9 g/dL (10/27/23 8:56 AM) 1Result Comment: Testing Performed By: Dept of Pathology [facility] [address] Bonilla, [address] [place] [address], [place] [id number] 2Result Comment: Testing Performed By: Dept of Pathology [facility] Christofer Bonilla, [address] [place] [address], [place] [address] 3Result Comment: Testing Performed By: Dept of Pathology [facility] Christofer Bonilla, [address] [place] [address], [place] [address] Social History Social History Type Response Smoking Status Never smoked cigaret pinky Sex Sex Representation Female (finding) Patient Care team information Care Team Personnel Name: Earl Medrano Position: HIS Supervisor_P Member Role: HIS Lifetime Name: FABRIZIO Rose, Zenia Gonzales Position: Physician Asst Exmpt - Family Med Member Role: Primary Care Provider Address: [address] [place] [address]
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
[2023-12-01 18:22] LABS: BUN Creatinine Ratio 13.4 (10-20); Calcium 9.6 mg/dl (8.6-10.3); Creatinine Clr Calc Pharmacy 113.9 ml/min; Magnesium 2.1 mg/dl (1.7-2.4); Phosphorus 3.8 mg/dl (2.5-4.9)
[2023-12-01] MEDS: INFLUENZA VACC TS2024-25(6m+)/PF (IIV3) 0.5mL Syr IM ONE (20:36)
[2023-12-01] MEDS: LORazepam 0.5 MG TAB PO SCH (20:40)
[2023-12-01] MEDS ORDERED: TUBE FEEDING WATER FLUSH GT SCH (21:00)
[2023-12-01] MEDS ORDERED: NUTREN LIQD 2.0 1,000 ML BAG NG SCH (21:00)
[2023-12-02 01:06] LABS: BUN Creatinine Ratio 16.4 (10-20); Calcium 9.1 mg/dl (8.6-10.3); Creatinine Clr Calc Pharmacy 125.1 ml/min; Magnesium 2.2 mg/dl (1.7-2.4); Phosphorus 4.3 mg/dl (2.5-4.9); Potassium 3.6 mmol/L (3.5-5.1)
[2023-12-02 03:23] VITALS: RESP 16
[2023-12-02 06:34] LABS: BUN Creatinine Ratio 18.6 (10-20); Calcium 9.4 mg/dl (8.6-10.3); Magnesium 2.2 mg/dl (1.7-2.4); Phosphorus 3.9 mg/dl (2.5-4.9); Potassium 3.8 mmol/L (3.5-5.1)
[2023-12-02] MEDS: SERTRALINE HCL 50 MG TABLET PO SCH (08:23)
[2023-12-02] MEDS: THIAMINE HCL 300 MG in SODIUM CHLORIDE 0.9% 50 ML IV ONE (08:23)
[2023-12-02 12:31] VITALS: O2SAT 95
--- NOTE | 2023-12-02 14:42 | Discharge Summary ---
Date of Service December 02, 2023 Admission HPI Per Admitting Provider Maura is a 33-year-old female with a history of POTS, eating disorder, severe malnutrition, current BMI 19.3 who was referred from [facility] for worsened orthostatic vital signs and concerns for acute on chronic malnutrition requiring medical stabilization. Dietitian recommended she come to the ER for NG to help with tube feedings which patient has had before and reports that she feels comfortable managing at home. Due to orthostatic symptoms with presyncope/syncope she was not felt to be stable for outpatient management at this time is recommended for inpatient initiation of tube feeds and monitoring. Patient previously followed with [facility], has switched to a [facility] provider and will be admitted to [facility]. Maura is seen at the bedside. She repots she saw her [facility] PCP Wednesday and was very orthostatic, had been frequentlylightheaded with presyncopal events. Was recommended for admission on Wednesday but patient did not feel she needed this yet and had complications. Met with her shadow graph weight operator yesterday and was recommended for admission and to follow with shadow graph weight operator Lanie here for initiation of feeds. PCP Dr. Astudillo reportedly is comfortable with monitoring daily/weekly labs if needed once PCP. Pt reports her son has bad seperation anxiety and worries about be away/admitted. She has a friend that could take care of him temporarily. She reports intake has been decreased latelty. She has been trying to increase her caloric intake weekly Was at 400kcal/day several weeks ago. Was trying to increase this an dwas up to 900kcal/day more recently, but was not able to get over 1000 more than a few days a week but then would panic about it and restrict back down to 400- 500kcal/day. No chest pain, endorses palpitations in the last week. Presyncope without full syncope. Presyncopal on standing, and feels like partially blacks out every day when standing but has not fallen and hit the ground but needed to immediately crouch and sit down to relieve symptoms. Still voiding/peeing normally No fevers, chills or sweats No abdominal pain In the past she has done well with NGT placement, but is a difficult placement which has had to have been done with GI. Has had NG for 5-6 weeks in the past as an outpatient. Usualy does nighttime feeds which are th eleast stressful for her, would occasionally run during the day if needed if she went to bed late. Has never had a PEG tube. 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 She thinks the stress impacts her eating logistically because she has less time to try and eat. Does not feel she needs to talk to anyone about anxiety/depression at this time, denies SI. Still takes adderall, did not take today. Medical History: Reviewed Medications: Reviewed Surgical History: Reviewed Family history: Reviewed Allergies: Reviewed Social History: Review Code Status: Full Code Discharge Data Consultations 12/01/23 12:15 ED Decision to Admit Stat Hospital Course (1) Severe malnutrition: Summary: Maura is a 33-year-old female with a past medical history of restrictive intake/anorexia who was referred to the ER for orthostatic/syncopal episodes in the setting of extreme caloric restriction down to as low as 400 kcals per day. She was referred for inpatient management of malnutrition with concern for refeeding syndrome. Core safe NGT was placed and patient tolerated continuous feeds overnight without difficulty. Serial labs were with a stable potassium/sodium/phosphorus/magnesium levels. She was given 300 mg IV of thiamine initially on admission. Dietitian was consulted. Patient was recommended for nocturnal NG feedings using Nutren 2.0 or equivalent over 8 hours (from [id number] hrs.) at initial rate of 60 cc/h which we will provide for 80 mL/960 kcals/40 g protein. This rate was to be increased by 20 cc/day until goal of 90 cc/h. Continued hospital observation versus return home was discussed with the patient. She strongly preferred discharge to home, and noted logistic factors including having to care for her son without other caregivers available which precluded her ability to stay in the hospital for additional observation. Did review the risk of refeeding syndrome with the patient which she is aware, has had NGT placed as an outpatient with nighttime feedings in the past. On shared decision making patient was discharged with outpatient follow-up and was comfortable managing NGT feeds at home. Core safe can remain in for a maximum of 4-6 weeks. Patient is comfortable with the management of this and has done so in the past. She may continue 3 meals daily that contain 500 kcal on top of her nighttime NGT feedings. Case was reviewed with her primary care provider Zenia Astudillo PA-C. Patient will have daily labs including CMP/mag/phosphorus which will be followed up with her PCP daily. Nurse navigator was following up for an appointment with either employee representative versus GI for follow-up of her indwelling NGT. She is aware of the risk of aspiration with NGT feeds, is aware to monitor and to continue to keep it monitored for appropriate depth. KUB on admission showed a enteric tube in place with the tip projecting over the mid stomach. NGT was at 65 cm to left nare. To do as outpatient: 1. Follow-up CMP/phosphorus/magnesium daily by PCP. Patient provided with a prescription for daily labs for 1 week, additional follow-up based on stability 2. Follow-up to PCP for appointment within 10 days to reevaluate progression 3. Reevaluation of NGT/removal when clinically appropriate as determined by dietitian this should not be left in place for more than 4-6 weeks maximum. Patient [place] [facility], they are willing to remove the NG tube if needed however are not able to have ongoing management of NG tube or make any recommendations for feeding/nutritional management this will be performed by her PCP/dietitian. (2) Eating disorder: (3) POTS (postural orthostatic tachycardia syndrome): POTS Worsened symptoms with presyncopal episodes due to volume contraction and nutritional insufficiency treated as above No chest pain or chest pressure, EKG sinus bradycardia with appropriate chronotropic response at the bedside. No ischemic changes Troponin is normal Day of discharge patient was able to stand and ambulate independently and reported her lightheadedness/presyncopal symptoms had improved following overnig ht feedings (4) Anxiety and depression: bipolar type II SSRI continued (5) ADHD (attention deficit hyperactivity disorder): Adderall held due to worsening caloric restriction/diminished appetite Plan DVT prophylaxis: Lovenox CODE STATUS: Full code Disposition: Medical/Tele due to palpitations, history of SVT Diet: Tube feeds. May supplement orals as tolerated. Coding Level of Care Code 68941 INP/OBS DISCH >30 MIN Diagnoses Severe malnutrition E43 Eating disorder F50.9 POTS (postural orthostatic tachycardia syndrome) I49.8 Anxiety and depression F41.9; F32.A ADHD (attention deficit hyperactivity disorder) F90.9
[2023-12-02 14:57] VITALS: BP 100/64; TEMP 98.4
[2023-12-02 15:37] VITALS: PULSE 71
== END 2023-12-02 16:21 | disposition home or self-care (01) | DRG 641 ==
LOC: ED 09:27 → 2W 12:26